=== PATIENT | female | born 1995 | race Caucasian/White ===

== ENCOUNTER 2020-01-09 19:00 | Outpatient (CLI) | payer OTHER | END 2020-01-09 19:01 | disposition home or self-care (01) | LOC: SLEEPLAB 19:00 | PROVIDERS: ATTEND Dentist General Practice | DX: G47.33 Obstructive sleep apnea (adult) (pediatric) (principal) | CPT/HCPCS: 95806 ==

== ENCOUNTER 2021-02-04 07:34 | Outpatient (CLI) | payer OTHER | END 2021-02-04 07:35 | disposition home or self-care (01) | LOC: NM 07:34 | PROVIDERS: ATTEND Internal Medicine | DX: R11.2 Nausea with vomiting, unspecified (principal); R63.4 Abnormal weight loss | CPT/HCPCS: 78264; A9541 ==

== ENCOUNTER 2021-04-15 11:09 | Outpatient (CLI) | payer OTHER | END 2021-04-15 11:10 | disposition home or self-care (01) | LOC: BICRAD 11:09 | PROVIDERS: ATTEND Family Medicine | DX: Z09 Encounter for follow-up examination after completed treatment for conditions other than malignant neoplasm (principal); Z86.16 Personal history of COVID-19 | CPT/HCPCS: 71046 ==

== ENCOUNTER 2021-04-27 06:46 | Outpatient (CLI) | payer OTHER | END 2021-04-27 06:47 | disposition home or self-care (01) | LOC: BICMRI 06:46 | PROVIDERS: ATTEND Family Medicine | DX: T85.848A Pain due to other internal prosthetic devices, implants and grafts, initial encounter (principal) | CPT/HCPCS: A9577; C8908 ==